=== PATIENT | male | born 1925 | race Hispanic/Latino ===

== ENCOUNTER 2016-06-14 11:19 | Inpatient (IN) | payer MEDICARE ==
[2016-06-14 11:28] VITALS: BMI 26.4
--- NOTE | 2016-06-14 11:46 | ED PDOC ---
Arrival/HPI - General Chief Complaint: Weakness/Neurological Deficit Time Seen by Provider: 06/14/16 11:28 Historian: Patient, Detention - History of Present Illness Narrative History of Present Illness (Text): 06/14/16 11:31 Cheikh Pedroza is an 89 year old male whose past medical history includes Hyperthyroidism, Atrial Fibrillation, CHF, Hypertension, and Meniere's disease, who presents to the ED from [facility] for generalized weakness and mild shortness of breath. Patient also reports a headache that he states is different from the headaches he experiences due to the Meniere's disease. Symptoms are also associated with mild nausea and dizziness. Patient reports a minor slip from his wheelchair but denies LOC or head injury. Patient also denies any speech changes, vision changes, fever, vomiting, abdominal pain, urinary/bowel changes, or other associated symptoms. PMD: Prashanth Madera MD Time/Duration: 24 hours Symptom Onset: Gradual Activities at Onset: Light Context: Home Past Medical History - Provider Review Nursing Documentation Reviewed: Yes - Infectious Disease Hx of Infectious Diseases: None - Tetanus Immunization Tetanus Immunization: Unknown - Cardiac Hx Cardiac Disorders: Yes Hx Cardiac Arrhythmia: Yes (a fib) Hx Congestive Heart Failure: Yes Hx Hypertension: Yes Hx Peripheral Edema: Yes Other/Comment: CARDIOMEGALY 05-31-15 - Pulmonary Hx Respiratory Disorders: Yes Hx Pneumonia: Yes Other/Comment: smoked cigarettes,pipe QUIT - Neurological Hx Neurological Disorder: Yes Hx Dizziness: Yes - HEENT Hx HEENT Disorder: Yes Hx Cataracts: Yes (LENS IMPLANT WITH GLASSES) Hx Deafness: Yes (LEFT EAR-) Hx Glaucoma: Yes Other/Comment: VEstibular neuritis - - Renal Hx Renal Disorder: No - Endocrine/Metabolic Hx Endocrine Disorders: Yes Hx Hyperthyroidism: Yes - Hematological/Oncological Hx Blood Disorders: Yes Hx Anemia: Yes - Integumentary Hx Dermatological Disorder: Yes Hx Eczema: Yes - Musculoskeletal/Rheumatological Hx Musculoskeletal Disorders: Yes Hx Falls: Yes Hx Unsteady Gait: Yes (NON AMBULATORY) - Gastrointestinal Hx Gastrointestinal Disorders: Yes Hx Diverticulitis: Yes Hx Gastroesophageal Reflux: Yes Other/Comment: CONSTIPATION, - Genitourinary/Gynecological Hx Genitourinary Disorders: Yes Hx Incontinence: Yes (SOME) Hx Prostate Problems: Yes (BPH) Hx Urinary Tract Infection: Yes - Psychiatric Hx Psychophysiologic Disorder: Yes (INSOMNIA) Hx Anxiety: Yes Hx Depression: No Hx Emotional Abuse: No Hx Physical Abuse: No Hx Substance Use: No Other/Comment: SMOKED CIGARETTES,PIPE QUIT,ETOH USE QUIT - Past Surgical History Past Surgical History: Unable to Obtain - Surgical History Other/Comment: 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,BILATERAL EYE LENS IMPLANT - Suicidal Assessment Feels Threatened In Home Enviroment: No Family/Social History - Physician Review Nursing Documentation Reviewed: Yes Family/Social History: No Known Family HX Smoking Status: Former Smoker Hx Alcohol Use: No Hx Substance Use: No Hx Substance Use Treatment: No Allergies/Home Meds Allergies/Adverse Reactions: Allergies No Known Allergies Allergy (Verified 06/14/16 11:23) Home Medications: Home Meds Medication Instructions Recorded Confirmed Furosemide [Lasix] 20 mg PO BID 10/14/13 06/14/16 Warfarin [Coumadin] 4 mg PO DAILY 10/14/13 06/14/16 LORazepam [Ativan] 0.5 mg PO Q6 PRN 10/28/13 06/14/16 Lisinopril [Zestril] 2.5 mg PO DAILY 10/28/13 06/14/16 Tamsulosin HCl [Flomax] 0.4 mg PO DAILY 06/20/14 06/14/16 Acetaminophen 650 mg PO Q6H PRN 05/31/15 06/14/16 Ascorbic Acid [Vitamin C] 500 mg PO BID 05/31/15 06/14/16 Multivitamin [One Daily] 1 tab PO DAILY 05/31/15 06/14/16 Atorvastatin [Lipitor] 5 mg PO HS 07/17/15 06/14/16 Carvedilol [Coreg] 3.125 mg PO BID 07/17/15 06/14/16 Digoxin [Lanoxin] 0.125 mg PO MWF 07/17/15 06/14/16 Ferrous Sulfate [Feosol] 325 mg PO DAILY 07/17/15 06/14/16 Polyethylene Glycol 3350 [Miralax] 17 gm PO BID PRN 07/17/15 06/14/16 Aluminum Hydroxide/Magnesium H 30 ml PO Q4 PRN 05/27/16 06/14/16 [Maalox 30 ml] Meclizine [Meclizine*] 12.5 mg PO BID 05/27/16 06/14/16 Verapamil [Calan Tab] 120 mg PO BID 05/27/16 06/14/16 Vit A/Vit C/Vit E/Zinc/Copper 1 tab PO DAILY 06/14/16 06/14/16 [Preservision Areds Softgel] Review of Systems - Physician Review All systems were reviewed & negative as marked: Yes - Review of Systems Constitutional: Other (Generalized Weakness). absent: Fevers Eyes: Normal. absent: Vision Changes ENT: Normal Respiratory: SOB. absent: Cough Cardiovascular: Normal. absent: Chest Pain Gastrointestinal: Nausea. absent: Abdominal Pain, Diarrhea, Vomiting, Appetite Changes Genitourinary Male: Normal. absent: Dysuria, Frequency, Hematuria, Urinary Output Changes Musculoskeletal: Normal. absent: Back Pain, Neck Pain Skin: Normal. absent: Rash Neurological: Headache, Dizziness Endocrine: Normal Hemo/Lymphatic: Normal Psychiatric: Normal Physical Exam Vital Signs Reviewed: Yes Vital Signs Temp Pulse Resp BP Pulse Ox 06/14/16 14:15 63 17 121/75 97 06/14/16 11:41 97.9 F 71 19 110/59 L 97 Temperature: Afebrile Blood Pressure: Hypertensive Pulse: Regular Respiratory Rate: Normal Appearance: Positive for: Well-Appearing, Non-Toxic, Comfortable, Other ( Elderly White Male) Pain Distress: None Mental Status: Positive for: Alert and Oriented X 3 Finger Stick Blood Glucose: 123 - Systems Exam Head: Present: Atraumatic, Normocephalic Pupils: Present: PERRL Extroacular Muscles: Present: EOMI Conjunctiva: Present: Normal Mouth: Present: Moist Mucous Membranes Pharnyx: Present: Normal. No: ERYTHEMA, EXUDATE Neck: Present: Normal Range of Motion Respiratory/Chest: Present: Clear to Auscultation, Good Air Exchange. No: Respiratory Distress, Accessory Muscle Use Cardiovascular: Present: Normal S1, S2, Irregular Rhythm (Irregularly Irregular ). No: Murmurs Abdomen: Present: Normal Bowel Sounds. No: Tenderness, Distention, Peritoneal Signs Back: Present: Normal Inspection Upper Extremity: Present: Normal Inspection. No: Cyanosis, Edema Lower Extremity: Present: Edema (Trace Edema), Other (Very Dry Skin) Neurological: Present: GCS=15, CN II-XII Intact, Speech Normal, Motor Func Grossly Intact, Normal Sensory Function, Normal Cerebellar Funct, Norm Deep Tendon Reflexes, Memory Normal, Normal 2Pt Descrimination Skin: Present: Warm, Dry, Normal Color. No: Rashes Psychiatric: Present: Alert, Oriented x 3, Normal Insight, Normal Concentration Medical Decision Making ED Course and Treatment: 06/14/16 11:31 Impression: 89 year old male sent from [facility] for generalized weakness. Differential Diagnosis include but are not limited to: CHF vs. Atypical ACS vs. Dehydration vs. Head Bleed vs. Electrolytes abnormalities vs. exacerbation of Meniere's disease Plan: -- Brain CT -- Chest X-ray -- VBG -- Labs, cardiac enzymes -- Urinalysis -- Urine Cultures -- Reassess and disposition Prior Visits: Notes and results from previous visits were reviewed. Patient was last seen in the ED on 05/27/16 for genitourinary related symptoms. Progress Notes: 06/14/16 12:00 EKG: Ordered, reviewed, and independently interpreted the EKG. Rate : 66 BPM Rhythm : NSR Interpretation : Normal [place] Deviations, Pseudonormalization of T-waves, No ST Changes Comparison : Compared with previous EKG on 07/17/15 06/14/2016 12:08 Procedure: CT HEAD WITHOUT CONTRAST. Dictator: KELSY RADFORD MD Impression: No acute intracranial abnormality. Moderate chronic microangiopathic changes and moderate age-related global parenchymal volume loss. 06/14/16 12:22 Procedure: CHEST RADIOGRAPH, 1 VIEW Dictator: KELSY RADFORD MD Impression: No active pulmonary disease. Severe cardiomegaly. 06/14/16 13:05 Sodium levels low; 127. 06/14/16 15:54 Patient with noted history - found to have hyponatremia which will need to be corrected; it is the likely cause of the generalized weakness -will admit to Dr. Madera's service; discussed with covering physician, Dr. Nicole. - Lab Interpretations Lab Results: 06/14/16 11:45 06/14/16 11:45 Lab Results 06/14/16 13:50: Ur Random Sodium 124, Ur Random Potassium 17.4 06/14/16 13:40: Urine Color Yellow, Urine Appearance Clear, Urine pH 7.5, Ur Specific [place] 1.010, Urine Protein Negative, Urine Glucose (UA) Negative, Urine Ketones Negative, Urine Blood Negative, Urine Nitrate Negative, Urine Bilirubin Negative, Urine Urobilinogen 1.0 H, Ur Leukocyte Esterase Negative 06/14/16 11:45: WBC 8.7 D, RBC 3.26 L, Hgb 11.1 L, Hct 32.2 L, MCV 98.8, MCH 34.0, MCHC 34.5, RDW 13.6, Plt Count 224, MPV 8.3, Gran % 68.8 H, Lymph % (Auto ) 18.5 L, [place] % (Auto) 9.7 H, Eos % (Auto) 2.4, Baso % (Auto) 0.6, Gran # 5.98 , Lymph # 1.6, [place] # 0.8 H, Eos # 0.2, Baso # 0.05, PT 27.4 H, INR 2.54 H, APTT 32.9 H, pO2 40, VBG pH 7.35, VBG pCO2 56.0, VBG HCO3 30.9 H, VBG Total CO2 32.6 H, VBG O2 Sat (Calc) 75.1 H, VBG Base Excess 3.8 H, VBG Potassium 3.8, Glucose 96, Lactate 1.0, FiO2 21.0, Sodium 129.0 L, Potassium 3.7, Chloride 95.0 L, Carbon Dioxide 28, Anion Gap 12, BUN 13, Creatinine 0.8, Est GFR ( Amer) > 60, Est GFR (Non-Af Amer) > 60, Random Glucose 98, Calcium 8.7, Magnesium 2.0, Total Bilirubin 1.0, Direct Bilirubin 0.5 H, AST 37, ALT 18, Alkaline Phosphatase 35 L, Lactate Dehydrogenase 376, Total Creatine Kinase 63, Troponin I < 0.01, NT-Pro-B Natriuret Pep 2780 H, Total Protein 6.8, Albumin 3.5 , Globulin 3.4, Albumin/Globulin Ratio 1.0 L, Lipase 58, Venous Blood Potassium 3.8, Digoxin 0.9 I have reviewed the lab results: Yes - RAD Interpretation Narrative RAD Interpretations (Text): 06/14/2016 12:08 Procedure: CT HEAD WITHOUT CONTRAST. Dictator: KELSY RADFORD MD FINDINGS: HEMORRHAGE: No intracranial hemorrhage. BRAIN: There are moderate chronic microangiopathic changes. There is no mass, mass effect or abnormal extra-axial fluid collection. There are coarse atherosclerotic calcifications in the cavernous carotid arteries. . There is normal density in the larger dural venous sinuses. VENTRICLES: There is moderate age-related global parenchymal volume loss and proportionate enlargement of the ventricles and cortical sulci. CALVARIUM: The skull base and calvarium are normal. PARANASAL SINUSES: Predominantly clear. MASTOID AIR CELLS: The right mastoid air cells are clear. Status post canal wall down left mastoidectomy. OTHER FINDINGS: None. Impression: No acute intracranial abnormality. Moderate chronic microangiopathic changes and moderate age-related global parenchymal volume loss. 06/14/16 12:22 Procedure: CHEST RADIOGRAPH, 1 VIEW Dictator: KELSY RADFORD MD FINDINGS: LUNGS: The lungs are clear. PLEURA: No pneumothorax or pleural fluid seen. CARDIOVASCULAR: There is severe cardiomegaly. There is unfolding of the aorta. OSSEOUS STRUCTURES: No significant abnormalities. VISUALIZED UPPER ABDOMEN: Normal. OTHER FINDINGS: None. Impression: No active pulmonary disease. Severe cardiomegaly. Radiology Orders: 06/14/16 11:41 Brain [HEAD W/O CONTRAST] [CT] Stat 06/14/16 11:42 CHEST ONE VIEW [RAD] Stat Seasonal Retail Merchandiser: Radiologist - EKG Interpretation Interpreted by ED Physician: Yes Type: 12 lead EKG Comparison: Com.w/previous EKG - Medication Orders Current Medication Orders: Sodium Chloride (Sodium Chloride 0.9%) 1,000 mls @ 75 mls/hr IV .[id number] FLORINDA Last Admin: 06/14/16 15:13 Dose: 75 MLS/HR eMAR Start Stop Document 06/14/16 15:13 SE (Rec: 06/14/16 15:13 SE [id number]) Intravenous Solution Start Date 06/14/16 Start Time 15:13 Discontinued Medications Betamethasone/Clotrimazole (Lotrisone) 1 ml TOP ONCE ONE Stop: 06/14/16 14:45 Last Admin: 06/14/16 15:51 Dose: 1 ML Comments: admin late due to not receiving from pharm. Sodium Chloride (Sodium Chloride 0.9%) 500 mls @ 250 mls/hr IV .Q2H STA Stop: 06/14/16 14:36 Last Admin: 06/14/16 12:44 Dose: 250 MLS/HR eMAR Start Stop Document 06/14/16 12:44 SE (Rec: 06/14/16 12:44 SE [id number]) Intravenous Solution Start Date 06/14/16 Start Time 12:44 Meclizine HCl (Antivert) 12.5 mg PO STAT STA Stop: 06/14/16 12:23 Last Admin: 06/14/16 12:26 Dose: 12.5 MG Ondansetron HCl (Zofran Inj) 4 mg IVP STAT STA Stop: 06/14/16 12:23 Last Admin: 06/14/16 12:26 Dose: 4 MG IVP Administration Document 06/14/16 12:26 SE (Rec: 06/14/16 12:26 SE [id number]) Charges for Administration # of IVP Administrations 1 - Scribe Statement The provider has reviewed the documentation as recorded by the Kael Weathers Provider Attestation: All medical record entries made by the Kael were at my direction and personally dictated by me. I have reviewed the chart and agree that the record accurately reflects my personal performance of the history, physical exam, medical decision making, and the department course for this patient. I have also personally directed, reviewed, and agree with the discharge instructions and disposition. Disposition/Present on Arrival - Present on Arrival Any Indicators Present on Arrival: No History of DVT/PE: No History of Uncontrolled Diabetes: No Urinary Catheter: No History of Decub. Ulcer: No History Surgical Site Infection Following: None - Disposition Have Diagnosis and Disposition been Completed?: Yes Diagnosis: Hyponatremia Disposition: HOSPITALIZED Disposition Time: 14:55 Patient Plan: Admission, Telemetry Patient Problems: Current Active Problems Problem Status Diagnosed Anemia Acute Dizziness Acute Fever Acute Urinary tract infection Acute Weakness Acute Condition: FAIR
[2016-06-14 11:54] LABS: ADD MANUAL DIFF? NO; BASO # 0.05 [, K/mm3] (0.0-2.0); BASO % 0.6 % (0.0-3.0); EOS # 0.2 (0.0-0.7); EOS % 2.4 % (1.5-5.0); GRAN # 5.98 (1.4-6.5); GRAN % 68.8 % (50.0-68.0); HEMATOCRIT 32.2 % (42.0-52.0); LYMPH # 1.6 (1.2-3.4); LYMPH % 18.5 % (22.0-35.0); MEAN CELL VOLUME 98.8 fL (80.0-105.0); MEAN CORPUSCULAR HGB CONC 34.5 g/dl (31.0-37.0); MEAN PLATELET VOLUME 8.3 fl (7.0-11.0); MONO # 0.8 (0.1-0.6); MONO % 9.7 % (1.0-6.0); PLATELET COUNT 224 [, 10^3/uL] (120.0-450.0); RED CELL DISTRIBUTION WIDTH 13.6 % (11.5-14.5); WHITE BLOOD COUNT 8.7 [, 10^3/ul] (4.5-11.0)
[2016-06-14 11:56] LABS: VENOUS BLOOD GAS BASE EXCESS 3.8 mmol/L (0.0-2.0); VENOUS BLOOD PH 7.35 (7.32-7.43)
[2016-06-14 12:05] LABS: INR 2.54 (0.93-1.08); PARTIAL THROMBOPLASTIN TIME 32.9 Seconds (23.7-30.8)
[2016-06-14 12:10] LABS: ALKALINE PHOSPHATASE 35 U/L (38-133); ALT/SGPT 18 U/L (7-56); AST/SGOT 37 U/L (15-59); BILIRUBIN,DIRECT 0.5 mg/dL (0.0-0.4); BLOOD UREA NITROGEN 13 mg/dL (7-21); CALCIUM 8.7 mg/dL (8.4-10.5); CARBON DIOXIDE 28 mmol/L (21-33); CHLORIDE 91 mmol/L (98-107); GFR AFRICAN-AMERICAN > 60; GLUCOSE,RANDOM 98 mg/dL (70-110); LIPASE 58 U/L (23-300); POTASSIUM 3.7 mmol/L (3.6-5.0); SODIUM 127 mmol/L (132-148); TOTAL PROTEIN 6.8 g/dL (5.8-8.3)
--- NOTE | 2016-06-14 12:10 | CT ---
PROCEDURE: CT HEAD WITHOUT CONTRAST. HISTORY: fall, on coumadin COMPARISON: MRI brain without contrast from 07/18/2015 TECHNIQUE: Axial computed tomography images were obtained through the head/brain without intravenous contrast. Radiation dose: Total exam DLP = 791.52 mGy-cm. FINDINGS: HEMORRHAGE: No intracranial hemorrhage. BRAIN: There are moderate chronic microangiopathic changes. There is no mass, mass effect or abnormal extra-axial fluid collection. There are coarse atherosclerotic calcifications in the cavernous carotid arteries. . There is normal density in the larger dural venous sinuses. VENTRICLES: There is moderate age-related global parenchymal volume loss and proportionate enlargement of the ventricles and cortical sulci. CALVARIUM: The skull base and calvarium are normal. PARANASAL SINUSES: Predominantly clear. MASTOID AIR CELLS: The right mastoid air cells are clear. Status post canal wall down left mastoidectomy. OTHER FINDINGS: None. IMPRESSION: No acute intracranial abnormality. Moderate chronic microangiopathic changes and moderate age-related global parenchymal volume loss.
--- NOTE | 2016-06-14 12:23 | RAD ---
PROCEDURE: CHEST RADIOGRAPH, 1 VIEW HISTORY: Shortness of breath COMPARISON: 07/17/2015 FINDINGS: LUNGS: The lungs are clear. PLEURA: No pneumothorax or pleural fluid seen. CARDIOVASCULAR: There is severe cardiomegaly. There is unfolding of the aorta. OSSEOUS STRUCTURES: No significant abnormalities. VISUALIZED UPPER ABDOMEN: Normal. OTHER FINDINGS: None. IMPRESSION: No active pulmonary disease. Severe cardiomegaly.
[2016-06-14] MEDS ORDERED: Sodium Chloride 0.9% 500 ML IV STA (12:37)
[2016-06-14 12:47] LABS: TROPONIN I < 0.01 ng/mL
[2016-06-14 13:54] LABS: PH,URINE 7.5 (4.7-8.0); URINE BILIRUBIN NEGATIVE (NEGATIVE); URINE BLOOD NEGATIVE (NEGATIVE); URINE GLUCOSE (UA) NEGATIVE (NEGATIVE); URINE KETONE NEGATIVE (NEGATIVE); URINE LEUKOCYTE ESTERASE NEGATIVE Leu/uL (NEGATIVE); URINE PROTEIN NEGATIVE mg/dL (<30 mg/dL)
[2016-06-14 13:58] LABS: URINE APPEARANCE CLEAR (CLEAR); URINE COLOR YELLOW (YELLOW)
--- NOTE | 2016-06-14 14:29 | CARD ---
APPROVED REPORT EKG Measurement Heart [id number] <Conclusion> Atrial fibrillation Abnormal ECG
[2016-06-14] MEDS ORDERED: Clotrimazole/Betamethasone Lotion(30 ml) TOP ONE (14:44)
[2016-06-14] MEDS ORDERED: Sodium Chloride 0.9% 1,000 ML IV SCH (15:15)
[2016-06-14] MEDS ORDERED: POLYETHYLENE GLYCOL 3350 17 GM/Dose PACKET PO PRN (17:28)
--- NOTE | 2016-06-14 17:53 | HP ---
HISTORY OF PRESENT ILLNESS: The patient is an 89-year-old, who was sent from [facility] because of generalized weakness. The patient did have mild shortness of breath noted by the nurse on duty. Also complained of some headache, feeling dizzy, lightheaded, and was having some decrease in appetite. The patient also states that he was feeling weak and he almost slipped from the wheelchai r, but did not have any head injury, did not lose consciousness. Did have some slurred speech, becau se of not having dentures. Because of all these multiple complaints, he was sent to Emergency Room f or further evaluation. He does not have nausea or vomiting, but does complain of decreased appetite. PAST MEDICAL HISTORY: Significant for 1. Chronic atrial fibrillation. 2. History of congestive heart failure. 3. Cardiomyopathy. 4. History of benign prostatic hypertrophy. 5. Status post multiple urinary tract infections. 6. Peptic ulcer disease. 7. Generalized osteoarthritis. 8. Chronic anemia. 9. History of glaucoma. 10. Hyperthyroidism. 11. History of Meniere disease. 12. Hypertension. SOCIAL HISTORY: He used to smoke cigars. He was a smoker in the past. Currently he is a resident o f [facility]. ALLERGIES: Not allergic to any medications. MEDICATIONS: In the alf, he is on Lasix 20 mg twice a day, tramadol 50 mg q. 6, digoxin 0.1 25 daily, verapamil 120 mg q. 12, ascorbic acid 500 twice a day, lisinopril 2.5 mg daily, Ativan 1 mg 3 times a day, Coumadin 4 mg daily. REVIEW OF SYSTEMS: Significant for generalized weakness, decreased appetite and feeling dizzy and li ghtheaded. PHYSICAL EXAMINATION: GENERAL: He is awake and alert, able to answer simple questions. VITAL SIGNS: He is afebrile, pulse 71, respirations 19, blood pressure 110/59. LUNGS: Bilateral fair airflow, no rhonchi or crackle. HEART: S1, S2 audible. ABDOMEN: Soft, nontender, no rebound, no guarding. NEUROLOGIC: He is awake and alert, answers simple questions. EXTREMITIES: Bilateral leg, no edema. LABORATORY DATA: WBC is 8.7, hemoglobin 11, hematocrit 32, platelet of 224. PT 27.4, INR 2.54. Shima tete: Sodium 127, potassium 3.7, chloride 91, CO2 28, BUN 13, creatinine 0.8, blood sugar of 98. LFTs are within normal limits. Magnesium is 2.0. BNP is 2780. Troponin is negative. Urinalysis is unremarkable. Digoxin is 0.9. CT scan of the head, no acute finding. X-ray chest, severe cardiomegaly, no pulmonary disease. ECG shows atrial fibrillation. ASSESSMENT: 1. Generalized weakness, probably secondary to hyponatremia. 2. Mruxx-rq-vuanwyh congestive heart failure, systolic dysfunction. 3. Chronic atrial fibrillation. 4. History of hypertension. 5. History of Meniere disease. 6. Chronic anemia. PLAN: The patient will be admitted. We will start him on hypotonic saline. We will resume his usua l medication. Follow up electrolytes in a.m. Physical therapy evaluation has been requested. We wi ll reevaluate the patient in a.m. Angelique Nicole MD cc: [phone] TT: 06/14/2016 17:52:54 ln
[2016-06-14] MEDS: Sodium Chloride 3% 500 ML IV SCH (18:41)
[2016-06-14 20:18] LABS: TROPONIN I < 0.01 ng/mL
[2016-06-14] MEDS ORDERED: Influenza Vaccine 45 MCG/0.5 ml IM ONE (21:30)
[2016-06-14] MEDS ORDERED: Pneumococcal 23-Valent Vaccine IM ONE (21:30)
--- NOTE | 2016-06-14 22:55 | CP.PCM.PN ---
Subjective - Date & Time of Evaluation Date of Evaluation: 06/14/16 Time of Evaluation: 22:54 - Subjective Subjective: HR 38-40 since came to floor. It was in 70's in the ER. Received Coreg 3.125.PO. Verapamil 125 mg PO 93/54, 98.5*F pulse ox 98% on 2L/min. Ordered EKG , troponin, hold coreg, verapamil . Evaluated patient. This 89 year old male was admitted from [facility] for generalized weakness, anorexia, dizziness, sob. Has PMH of HTN,chronic atrial fibrillation, hyperthyroidism, CHF,CMP,BPH,PUD, anemia, OA. Objective - Vital Signs/Intake and Output Vital Signs (last 24 hours): Temp Pulse Resp BP Pulse Ox 97.7 F 63 17 121/75 95 06/14/16 21:08 06/14/16 21:08 06/14/16 21:08 06/14/16 21:08 06/14/16 20:40 - Medications Medications: Current Medications Acetaminophen (Tylenol 325mg Tab) 650 mg PO Q6H PRN PRN Reason: Fever >100.4 F Atorvastatin Calcium (Lipitor) 5 mg PO HS [facility] Last Admin: 06/14/16 22:19 Dose: 5 mg Carvedilol (Coreg) 3.125 mg PO BID FLORINDA Digoxin (Lanoxin) 0.125 mg PO MWF [facility] Sodium Chloride (Hypertonic Saline 3%) 500 mls @ 10 mls/hr IV .Q24H [facility] Last Admin: 06/14/16 18:41 Dose: 10 mls/hr Lisinopril (Zestril) 2.5 mg PO DAILY [facility] Last Admin: 06/14/16 18:47 Dose: 2.5 mg Lorazepam (Ativan) 0.5 mg PO Q6 PRN; Protocol PRN Reason: Anxiety Last Admin: 06/14/16 18:47 Dose: 0.5 mg Meclizine HCl (Antivert) 12.5 mg PO TID [facility] Last Admin: 06/14/16 18:35 Dose: 12.5 mg Polyethylene Glycol (Miralax) 17 gm PO BID PRN PRN Reason: Constipation Tamsulosin HCl (Flomax) 0.4 mg PO HS [facility] Verapamil HCl (Calan Tab) 120 mg PO BID [facility] Warfarin Sodium (Coumadin) 4 mg PO 1800 [facility] PRN Reason: Protocol - Labs Labs: PT 27.4 Seconds (9.9-11.8) H 06/14/16 11:45 INR 2.54 (0.93-1.08) H 06/14/16 11:45 APTT 32.9 Seconds (23.7-30.8) H 06/14/16 11:45 - Constitutional Appears: Well, No Acute Distress - Head Exam Head Exam: NORMAL INSPECTION, NORMOCEPHALIC - Eye Exam Eye Exam: Normal appearance - ENT Exam ENT Exam: Mucous Membranes Dry - Neck Exam Neck Exam: Normal Inspection - Respiratory Exam Respiratory Exam: NORMAL BREATHING PATTERN - Cardiovascular Exam Cardiovascular Exam: Bradycardia, Irregular Rhythm. absent: JVD - GI/Abdominal Exam GI & Abdominal Exam: absent: Distended - Extremities Exam Extremities Exam: Normal Inspection - Back Exam Back Exam: NORMAL INSPECTION - Neurological Exam Neurological Exam: Altered (mental status) - Psychiatric Exam Psychiatric exam: Normal Affect, Normal Mood - Skin Skin Exam: Normal Color Assessment and Plan - Assessment and Plan (Free Text) Assessment: A/P:Atrial fibrillation with low rate. Hypotension.2* to meds coreg, verapamil? Chronic atrial fibrillation. BPH. Hx CHF. HTN. Anemia. Hyperthyroidism. Hold coreg, verapamil EKG troponin. 12:03 Patient comfortable.Has no chest pain, nausea, sweating, palpitation, sob. Monitor shows rate ranging from 40- 45. Checked with monitor car operator. Has bradyarrhythmia(AFib) since 8:30 PM. Had some pauses, 2secons and PVC's. EKG shows new inversion of T waves in V2,V3, atrial fibrillation. Will get BMP, mag,phos levels also. Will observe.
[2016-06-15 00:16] LABS: BLOOD UREA NITROGEN 13 mg/dL (7-21); CALCIUM 8.4 mg/dL (8.4-10.5); CARBON DIOXIDE 29 mmol/L (21-33); CHLORIDE 90 mmol/L (98-107); GFR AFRICAN-AMERICAN > 60; GLUCOSE,RANDOM 93 mg/dL (70-110); PHOSPHOROUS 3.3 mg/dL (2.5-4.5); POTASSIUM 3.8 mmol/L (3.6-5.0); SODIUM 126 mmol/L (132-148)
[2016-06-15 06:52] LABS: ADD MANUAL DIFF? NO
[2016-06-15 07:10] LABS: BASO # 0.03 [, K/mm3] (0.0-2.0); BASO % 0.4 % (0.0-3.0); EOS # 0.2 (0.0-0.7); EOS % 2.6 % (1.5-5.0); GRAN # 4.53 (1.4-6.5); GRAN % 63.2 % (50.0-68.0); HEMATOCRIT 34.1 % (42.0-52.0); LYMPH # 1.7 (1.2-3.4); MEAN CELL VOLUME 99.1 fL (80.0-105.0); MEAN CORPUSCULAR HEMOGLOBIN 33.4 pg (25.0-35.0); MEAN CORPUSCULAR HGB CONC 33.7 g/dl (31.0-37.0); MEAN PLATELET VOLUME 8.6 fl (7.0-11.0); MONO # 0.7 (0.1-0.6); MONO % 9.8 % (1.0-6.0); PLATELET COUNT 231 [, 10^3/uL] (120.0-450.0); RED CELL DISTRIBUTION WIDTH 13.8 % (11.5-14.5); WHITE BLOOD COUNT 7.2 [, 10^3/ul] (4.5-11.0)
[2016-06-15 07:11] LABS: ALKALINE PHOSPHATASE 37 U/L (38-133); ALT/SGPT 22 U/L (7-56); AST/SGOT 39 U/L (15-59); BILIRUBIN,TOTAL 1.2 mg/dL (0.2-1.3); BLOOD UREA NITROGEN 12 mg/dL (7-21); CALCIUM 8.8 mg/dL (8.4-10.5); CARBON DIOXIDE 30 mmol/L (21-33); CHLORIDE 91 mmol/L (98-107); GFR AFRICAN-AMERICAN > 60; GLUCOSE,RANDOM 89 mg/dL (70-110); POTASSIUM 4.7 mmol/L (3.6-5.0); SODIUM 128 mmol/L (132-148)
[2016-06-15 07:33] LABS: TROPONIN I < 0.01 ng/mL
--- NOTE | 2016-06-15 14:48 | PN ---
DATE: 06/15/2016 The patient is an 89-year-old, seen and examined, lying in bed. Complained of discomfort on urinatio n. However, urinalysis is unremarkable. He complained of feeling dizzy, weak in the detention. He was brought to Emergency Room, was found to be hyponatremic. When I mentioned to him, he said lyssa t is the least of his problems. He complained of some urinary discomfort. No history of fever or ch ills. No history of nausea or vomiting. PHYSICAL EXAMINATION: VITAL SIGNS: He is afebrile, pulse 76, respirations 19, blood pressure 130/85. LUNGS: Bilateral fair airflow, no rhonchi or crackle. HEART: S1, S2 audible. ABDOMEN: Soft, obese, nontender, no rebound, no guarding. NEUROLOGIC: He is awake and alert, answers appropriately. EXTREMITIES: Bilateral legs, no edema. LABORATORY EXAMINATION: WBC 7.2, hemoglobin 11.5, hematocrit 34, platelets of 231. PT is 27.4, INR 2.54. Chemistry: Sodium 128, potassium 4.7, chloride 91, CO2 30, BUN 12, creatinine 0.7, blood suga r of 89. Urinalysis is unremarkable. Toxicology shows dig level of 0.9. ASSESSMENT: 1. Generalized weakness, probably secondary to electrolyte imbalance. 2. Chronic Meniere disease. 3. Congestive heart failure. 4. Chronic atrial fibrillation, on anticoagulation. 5. Hypertension. 6. Chronic anemia. 7. Deconditioning and difficulty walking. PLAN: Currently, patient is on Antivert. We will keep him on Coumadin 4 mg daily. I will order for CBC, CMP, and PT/INR in a.m. Out of bed to chair with assistance. Dr. Madera will reevaluate pat ient in a.m. Angelique Nicole MD cc: [phone] TT: 06/15/2016 14:48:26 Confirmation # [id number] Dictation # [id number]
--- NOTE | 2016-06-15 18:24 | CARD ---
APPROVED REPORT EKG Measurement Heart [id number] <Conclusion> Atrial fibrillation Low voltage QRS Abnormal ECG
--- NOTE | 2016-06-15 18:29 | CARD ---
APPROVED REPORT EKG Measurement Heart [id number] <Conclusion> Atrial fibrillation with slow ventricular response with premature ventricular or aberrantly conducted complexes ST & T wave abnormality, consider anterior ischemia or digitalis effect Abnormal ECG
[2016-06-15] MEDS: Sodium Chloride 3% 500 ML IV SCH (22:48)
[2016-06-16 05:33] VITALS: O2SAT 98
[2016-06-16 07:14] LABS: INR 2.19 (0.93-1.08)
[2016-06-16 07:26] LABS: ALB/GLOB RATIO 0.9 (1.1-1.8); ALKALINE PHOSPHATASE 32 U/L (38-133); ALT/SGPT 16 U/L (7-56); AST/SGOT 35 U/L (15-59); BLOOD UREA NITROGEN 14 mg/dL (7-21); CALCIUM 7.9 mg/dL (8.4-10.5); CARBON DIOXIDE 31 mmol/L (21-33); CHLORIDE 102 mmol/L (98-107); GFR AFRICAN-AMERICAN > 60; GLUCOSE,RANDOM 88 mg/dL (70-110); POTASSIUM 4.1 mmol/L (3.6-5.0); SODIUM 138 mmol/L (132-148); TOTAL PROTEIN 5.9 g/dL (5.8-8.3)
--- NOTE | 2016-06-16 08:44 | CON ---
DATE: 06/15/2016 CARDIOLOGY CONSULTATION Cardiology consultation (for Dr. Bajwa). HISTORY OF PRESENT ILLNESS: The patient is an 89-year-old male from a intermediate who presents with weakness. PAST MEDICAL HISTORY: The patient's past medical history has been documented with chronic atrial fib rillation with periods of marked bradycardia in previous admissions, which have resolved off AV bette -blocking medications. 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 No shortness of breath, no chest pain noted. The patient just complains of weakness. SOCIAL HISTORY: The patient is from a intermediate. REVIEW OF SYSTEMS: A 14-point review of systems was reviewed. His main complaints are noncardiac wi th lack of sleep with poor dietary food quality, as well as being bothered all night for tests, as we ll as examinations. PHYSICAL EXAMINATION: VITAL SIGNS: Blood pressure is 102/54. The heart rate in the 40s, atrial fibrillation. NECK: Negative JVD. LUNGS: Without rales. HEART: Reveals a I/ systolic murmur. EXTREMITIES: Without edema. EKG shows atrial fibrillation with marked decreased ventricular rate. LABORATORIES: The INR is 2.54. Chemistries: The sodium is 128 with troponins that are negative. T he hemoglobin is 11.5. IMPRESSION: 1. Chronic atrial fibrillation being anticoagulated appropriately. However, he has had repeated epi sodes of bradycardia on atrioventricular-blocking bette medications. 2. Anemia. 3. Dilated cardiomyopathy. 4. History of Meniere's disease. 5. Remote history of congestive heart failure. Given these findings, we will discontinue his verapamil; we will discontinue his beta-blockers. As a suggestion, I would avoid atrioventricular bette-blocking medications especially in combination in this gentleman who has documented slow heart rates in the past. We will hold these medications, observe for 24 hours. No further cardiac workup is indicated at this time. We will send the case back to Dr. Bajwa in the morning. Edson Perry MD cc: [id number] TT: 06/15/2016 08:44:16 Confirmation # [id number] Dictation # [id number] jn
[2016-06-16 09:23] VITALS: PULSE 45
[2016-06-16] MEDS ORDERED: Digoxin 125 mcg (0.125 mg) Tab PO SCH (10:00)
--- NOTE | 2016-06-16 10:58 | DS ---
SUBJECTIVE: This is an 89-year-old male who came into the hospital complaining of dizziness. The jadiel gomez had an evaluation done. A CT of the head showed no acute intracranial abnormalities. He has b een having this dizziness for quite some time. He was found to be hyponatremic. He was treated and his sodium is improved. This morning, his sodium is 138. The patient is currently comfortable. He is going to be seen by Dr. Michael and if there is no other intervention, the patient will be dischar ge. PHYSICAL EXAMINATION: VITAL SIGNS: Temperature is 97.9, pulse of 57, blood pressure is 129/66, respirations 20, O2 saturat ion 98%. GENERAL: The patient comfortable, in no acute distress. HEENT: Anicteric sclerae. Moist mucosa. NECK: No JVD or adenopathy. CARDIAC: S1/S2. No murmurs. No rubs. Regular. RESPIRATORY: Clear to auscultation bilaterally. No wheezes, rales, or rhonchi. Good air entry. ABDOMEN: Bowel sounds are positive, soft, nontender, and nondistended. EXTREMITIES: No edema. Has 1+ pulses. ASSESSMENT: 1. Dizziness, secondary to Meniere's 2. Atrial fibrillation, on Coumadin. 3. Hypertension. 4. Chronic anemia. 5. Gait dysfunction. 6. Dyslipidemia. PLAN: The patient is currently comfortable. We will stop the patient's hypertonic saline. The jon york is on digoxin. He is going to be on Coumadin, is on meclizine. He is going to continue with lis inopril. He is on a heart healthy diet. He had balanitis that is being treated locally. The yen zurita is going to be discharged back to the [facility] where he is a long-term care resident. CONDITION: Stable. ACTIVITY: Increase as tolerated. Prashanth Madera MD cc: [id number] TT: 06/16/2016 10:57:28 en
[2016-06-16 12:07] VITALS: BP 97/64; RESP 21; TEMP 97.5
--- NOTE | 2016-06-16 13:14 | PN ---
DATE: 06/16/2016 REASON FOR EVALUATION: Cardiac evaluation, history of chronic atrial fibrillation, admitted with gen eralized weakness. BRIEF CLINICAL HISTORY: This is an 89-year-old male, documented history of chronic atrial fibrillati on, hypertension, hyperlipidemia. Cardiology being followed at [facility] in the [place]. The patient has worked up for implantation of pacemaker. The patient last time refused pacemak er and was told by cardiology that he does not need a pacemaker. As per patient, who admitted with g eneralized weakness one point, patient has 3 second pause. The heart rate improved after holdi ng the AV bette blocking agent. The patient at home was digoxin as well as verapamil. Since is held , patient had a 2 second pause, but not 3 seconds and admitting heart rate improved. The patient den ies any chest pain, shortness of breath, any palpitation. PAST MEDICAL HISTORY: Significant for hypertension, hyperlipidemia, chronic atrial fibrillation and was told in the past that the patient needs a pacemaker. The patient refused. Later on, the cardiol ogy group said the patient does not need the pacemaker. PREVIOUS CARDIAC WORKUP: The patient had echocardiography 10/15/2013 that shows normal LV size, eject ion fraction 25%, mild to moderate aortic regurgitation, moderate to severe mitral regurgitation, mod erate to severe tricuspid regurgitation, RV systolic pressure 44. Then patient had repeat echocardio graphy on 06/21/2014 that shows ejection fraction 45%, mildly impaired, mild to moderate aortic regurg itation, mild mitral regurgitation, trace tricuspid regurgitation, RV systolic pressure 26. Last adm ission, patient's heart rate was slow. Holter was placed and maximum pause was 2.4 seconds. After t his admission, patient was discharged to [facility]. Decision was made not to put the pa cemaker. PHYSICAL EXAMINATION: VITAL SIGNS: Temperature afebrile, heart rate 45, blood pressure 97/54. HEENT: PERRLA. Extraocular muscles intact. NECK: Supple. No carotid bruits. No thyromegaly. CHEST: Clear to auscultation. HEART: S1, S2 regular. ABDOMEN: Soft. EXTREMITIES: Clubbing, cyanosis negative. BLOOD WORKUP: WBC 7.4, hemoglobin 11.5, hematocrit 34.1, platelet count 231. Chemistry shows sodium 130, potassium 4.1, chloride 102, carbon dioxide 31, anion gap of 9, BUN 14, creatinine 0.7. Tropon in 0.01. No evidence of acute VT noted. EKG showed atrial fibrillation, heart rate 65. IMPRESSION: Chronic atrial fibrillation, slow ventricular rate. On admission, patient had a long pa use because patient was on verapamil as well as digoxin, which after the verapamil was discontinued, heart rate significantly improved. No evidence of acute myocardial infarction. No evidence of coron ronny ischemia. Troponin remains flat. Last echo 06/21/2014, ejection fraction 45%, mild to moderate a ortic regurgitation, mild to moderate mitral regurgitation, trace tricuspid regurgitation, right vent ricular systolic pressure 26. INR therapeutic 2.19. RECOMMENDATION: Continue digoxin Thursday, Thursday, Thursday. Discontinue verapamil because it slows the heart rate with bette blocking agent. Continue current treatment. Possible discharge plan gisele. Thank you, Dr. Madera, for providing us the opportunity in taking care of the patient. We will mon itor while the patient is here on the telemetry. Repeat the blood workup in the morning. We will al so get lipid profile and PT/INR in the morning. Thank you, Dr. Madera, for providing us the opportunity in taking care of the patient. Celestina Bajwa MD cc:Prashanth Madera MD [id number] TT: 06/16/2016 13:13:22 Confirmation # [id number] Dictation # [id number] en
== END 2016-06-16 14:17 | DRG 641 ==
LOC: ED 11:19 → ERH 15:09 → 2RSO 17:48
PROVIDERS: ADMIT Internal Medicine Nephrology; ATTEND Internal Medicine Nephrology
DX: E87.1 Hypo-osmolality and hyponatremia (principal); I11.0 Hypertensive heart disease with heart failure; I42.0 Dilated cardiomyopathy; I50.22 Chronic systolic (congestive) heart failure; H81.09 Meniere's disease, unspecified ear; I48.2 Chronic atrial fibrillation; R00.1 Bradycardia, unspecified; D64.9 Anemia, unspecified; N40.0 Benign prostatic hyperplasia without lower urinary tract symptoms; E05.90 Thyrotoxicosis, unspecified without thyrotoxic crisis or storm; E78.5 Hyperlipidemia, unspecified; I25.5 Ischemic cardiomyopathy; R63.0 Anorexia; R26.2 Difficulty in walking, not elsewhere classified; I08.3 Combined rheumatic disorders of mitral, aortic and tricuspid valves; M15.9 Polyosteoarthritis, unspecified; Z79.01 Long term (current) use of anticoagulants; Z87.440 Personal history of urinary (tract) infections; Z87.11 Personal history of peptic ulcer disease; Z87.891 Personal history of nicotine dependence

== ENCOUNTER 2016-07-22 12:59 | Emergency (ER) | payer MEDICARE ==
[2016-07-22 13:00] VITALS: PULSE 45; BMI 26.4
--- NOTE | 2016-07-22 13:21 | ED PDOC ---
Arrival/HPI - General Chief Complaint: Weakness/Neurological Deficit Time Seen by Provider: 07/22/16 13:04 Historian: Patient, Usp - History of Present Illness Narrative History of Present Illness (Text): 07/22/16 13:18 A 89 year old male, whose past medical history includes hypertension, A-fib, CHF , GERD, multiple UTIs, anxiety and vertigo, was sent to the emergency department by [facility] for generalized weakness and frequent urination. On evaluation patient is alert to person and place only. Patient denies any fever, chills, nausea, vomiting, diarrhea, abdominal pain, chest pain ,shortness of breath or any other complaints. Patient is a poor historian. PMD: Dr. Madera Time/Duration: Prior to Arrival Symptom Course: Unchanged Quality: Other Context: Home (care home) Past Medical History - Provider Review Nursing Documentation Reviewed: Yes - Infectious Disease Hx of Infectious Diseases: None - Tetanus Immunization Tetanus Immunization: Unknown - Cardiac Hx Cardiac Disorders: Yes Hx Atrial Fibrillation: Yes Hx Cardiac Arrhythmia: Yes (a fib) Hx Congestive Heart Failure: Yes Hx Hypertension: Yes Hx Peripheral Edema: Yes Other/Comment: CARDIOMEGALY 05-31-15 - Pulmonary Hx Respiratory Disorders: Yes Hx Pneumonia: Yes Other/Comment: smoked cigarettes,pipe QUIT - Neurological Hx Neurological Disorder: Yes (NEAR SYNCOPE,MENIERE'S DSE,VERTIGO) Hx Dizziness: Yes Hx Vertigo: Yes - HEENT Hx HEENT Disorder: Yes Hx Cataracts: Yes (LENS IMPLANT WITH GLASSES) Hx Deafness: Yes (LEFT EAR-) Hx Glaucoma: Yes Other/Comment: VEstibular neuritis - - Renal Hx Renal Disorder: No - Endocrine/Metabolic Hx Endocrine Disorders: Yes Hx Hyperthyroidism: Yes - Hematological/Oncological Hx Blood Disorders: Yes Hx Anemia: Yes - Integumentary Hx Dermatological Disorder: Yes Hx Eczema: Yes - Musculoskeletal/Rheumatological Hx Musculoskeletal Disorders: Yes Hx Falls: Yes Hx Unsteady Gait: Yes (NON AMBULATORY) - Gastrointestinal Hx Gastrointestinal Disorders: Yes Hx Diverticulitis: Yes Hx Gastroesophageal Reflux: Yes Other/Comment: CONSTIPATION, - Genitourinary/Gynecological Hx Genitourinary Disorders: Yes Hx Incontinence: Yes (SOME) Hx Prostate Problems: Yes (BPH) Hx Urinary Tract Infection: Yes - Psychiatric Hx Psychophysiologic Disorder: Yes (INSOMNIA) Hx Anxiety: Yes Hx Depression: No Hx Emotional Abuse: No Hx Physical Abuse: No Hx Substance Use: No Other/Comment: SMOKED CIGARETTES,PIPE QUIT,ETOH USE QUIT - Past Surgical History Past Surgical History: Unable to Obtain - Surgical History Other/Comment: 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,BILATERAL EYE LENS IMPLANT - Suicidal Assessment Feels Threatened In Home Enviroment: No Family/Social History - Physician Review Nursing Documentation Reviewed: Yes Family/Social History: No Known Family HX Smoking Status: Former Smoker Hx Alcohol Use: No Hx Substance Use: No Hx Substance Use Treatment: No Allergies/Home Meds Allergies/Adverse Reactions: Allergies No Known Allergies Allergy (Verified 07/22/16 13:26) Home Medications: Home Meds Medication Instructions Recorded Confirmed Furosemide [Lasix] 20 mg PO BID 10/14/13 06/14/16 Warfarin [Coumadin] 4 mg PO DAILY 10/14/13 06/14/16 LORazepam [Ativan] 0.5 mg PO Q6 PRN 10/28/13 06/14/16 Lisinopril [Zestril] 2.5 mg PO DAILY 10/28/13 06/14/16 Tamsulosin HCl [Flomax] 0.4 mg PO DAILY 06/20/14 06/14/16 Ascorbic Acid [Vitamin C] 500 mg PO BID 05/31/15 06/14/16 Multivitamin [One Daily] 1 tab PO DAILY 05/31/15 06/14/16 Atorvastatin [Lipitor] 5 mg PO HS 07/17/15 06/14/16 Carvedilol [Coreg] 3.125 mg PO BID 07/17/15 06/14/16 Digoxin [Lanoxin] 0.125 mg PO MWF 07/17/15 06/14/16 Ferrous Sulfate [Feosol] 325 mg PO DAILY 07/17/15 06/14/16 Polyethylene Glycol 3350 [Miralax] 17 gm PO BID PRN 07/17/15 06/14/16 Aluminum Hydroxide/Magnesium H 30 ml PO Q4 PRN 05/27/16 06/14/16 [Maalox 30 ml] Meclizine [Meclizine*] 12.5 mg PO BID 05/27/16 06/14/16 Verapamil [Calan Tab] 120 mg PO BID 05/27/16 06/14/16 Acetaminophen [Tylenol 325mg tab] 325 mg PO Q6 PRN 06/14/16 06/14/16 Vit A/Vit C/Vit E/Zinc/Copper 1 tab PO DAILY 06/14/16 06/14/16 [Preservision Areds Softgel] Review of Systems - Physician Review All systems were reviewed & negative as marked: Yes - Review of Systems Constitutional: Other (Generalized weakness). absent: Fevers, Night Sweats Eyes: absent: Vision Changes Respiratory: absent: SOB Cardiovascular: absent: Chest Pain Gastrointestinal: absent: Abdominal Pain, Diarrhea, Nausea, Vomiting Genitourinary Male: Frequency Neurological: absent: Dizziness, Focal Weakness Physical Exam Vital Signs Reviewed: Yes Vital Signs Temp Pulse Resp BP Pulse Ox 07/22/16 13:28 99.1 F 07/22/16 13:12 98 F 68 16 131/72 96 Temperature: Afebrile Blood Pressure: Normal Pulse: Regular Respiratory Rate: Normal Appearance: Positive for: Well-Appearing, Non-Toxic, Comfortable Pain Distress: None Mental Status: Positive for: other (Alert to person and place only but not to time). No: Agitated - Systems Exam Head: Present: Atraumatic, Normocephalic Pupils: Present: PERRL Extroacular Muscles: Present: EOMI Conjunctiva: Present: Normal Mouth: Present: Moist Mucous Membranes Pharnyx: Present: Normal. No: ERYTHEMA, EXUDATE Respiratory/Chest: Present: Good Air Exchange, Decreased Breath Sounds (to bilateral bases). No: Respiratory Distress, Accessory Muscle Use Cardiovascular: Present: Normal S1, S2, Irregular Rhythm, Other (Regular Rate). No: Murmurs Abdomen: Present: Normal Bowel Sounds. No: Tenderness, Distention, Peritoneal Signs Upper Extremity: Present: Normal Inspection. No: Cyanosis, Edema Lower Extremity: Present: Normal Inspection, NORMAL PULSES, Neurovascularly Intact. No: Edema, CALF TENDERNESS, Tenderness, Swelling, Erythema, Deformity, Temperature Abnormalties Neurological: Present: GCS=15, CN II-XII Intact, Speech Normal Skin: Present: Warm, Dry, Normal Color. No: Rashes Psychiatric: Present: Alert, Other (Oriented to person and place, not time). No : Oriented x 3 Medical Decision Making ED Course and Treatment: 07/22/16 13:18 Impression: A 89 year old male sent in for generalized weakness and frequent urination. Patient is alert and oriented to person and time only, which is apparently is baseline. Plan: -- Head CT -- Chest xray -- EKG -- Labs -- Blood and Urine culture -- Urinalysis -- Reassess and disposition Prior Visits: Notes and results from previous visits were reviewed. Patient last seen in the ED on 06/14/16 for generalized weakness. Patient was hospitalized for hyponatremia. Progress Notes: EKG shows a-fib at 71 BPM with normal axis, no ST changes from prior on . Interpreted by me. Report Date : 07/22/2016 14:16:11 PROCEDURE: CT HEAD WITHOUT CONTRAST. Dictator : Mahnaz Schreiber MD IMPRESSION: No acute intracranial abnormality. Moderate chronic microangiopathic changes and moderate age-related global parenchymal volume loss. Report Date : 07/22/2016 14:20:39 PROCEDURE: CHEST RADIOGRAPH, 1 VIEW Dictator : Mahnaz Schreiber MD IMPRESSION: No active pulmonary disease. Persistent moderate cardiomegaly. 07/22/16 14:54 Patient with unremarkable vitals here in the ED. Blood work with minimal hyponatremia but otherwise unremarkable, and urine shows UTI. Will give rocephin. Patient with no alteration in mental status, as discussed with Dr. Madera, who says patient is at his baseline. CT brain was originally ordered for that, but it is negative. No indication for admission as patient may be continued on rocephin at the [place], and Dr. Madera will follow culture results. - Lab Interpretations Lab Results: 07/22/16 13:00 07/22/16 13:00 Lab Results 07/22/16 14:24: Urine Color Yellow, Urine Appearance Turbid, Urine pH 7.5, Ur Specific Otter 1.015, Urine Protein 30 H, Urine Glucose (UA) Negative, Urine Ketones Negative, Urine Blood Trace-lysed H, Urine Nitrate Positive H, Urine Bilirubin Negative, Urine Urobilinogen 4.0 H, Ur Leukocyte Esterase Large H, Urine RBC 0 - 2, Urine WBC Tntc, Urine Bacteria Many 07/22/16 13:45: pO2 63 H, VBG pH 7.36, VBG pCO2 58.0, VBG HCO3 32.8 H, VBG Total CO2 34.6 H, VBG O2 Sat (Calc) 94.8 H, VBG Base Excess 5.6 H, VBG Potassium 3.8, Glucose 103, Lactate 0.7, FiO2 21.0, Sodium 131.0 L, Chloride 99.0, Venous Blood Potassium 3.8 07/22/16 13:00: Digoxin 0.7 L 07/22/16 13:00: Sodium 130 L, Potassium 3.8, Chloride 92 L, Carbon Dioxide 31, Anion Gap 11, BUN 17, Creatinine 0.8, Est GFR ( Amer) > 60, Est GFR (Non- Af Amer) > 60, Random Glucose 97, Calcium 8.9, Phosphorus 3.3, Magnesium 2.1, Total Bilirubin 1.4 H, AST 40, ALT 32, Alkaline Phosphatase 37 L, Lactate Dehydrogenase 437, Total Creatine Kinase 54, Troponin I < 0.01, NT-Pro-B Natriuret Pep 4720 H, Total Protein 7.4, Albumin 3.8, Globulin 3.6, Albumin/ Globulin Ratio 1.1, Lipase 58 07/22/16 13:00: PT 25.3 H, INR 2.34 H, APTT 32.1 H 07/22/16 13:00: WBC 7.8, RBC 3.19 L, Hgb 10.9 L, Hct 31.5 L, MCV 98.7, MCH 34.2 , MCHC 34.6, RDW 13.7, Plt Count 286, MPV 8.1, Gran % 68.7 H, Lymph % (Auto) 18.7 L, [place] % (Auto) 9.6 H, Eos % (Auto) 2.6, Baso % (Auto) 0.4, Gran # 5.38, Lymph # 1.5, [place] # 0.8 H, Eos # 0.2, Baso # 0.03 I have reviewed the lab results: Yes - RAD Interpretation Radiology Orders: 07/22/16 13:23 CHEST ONE VIEW [RAD] Stat 07/22/16 13:25 Brain [HEAD W/O CONTRAST] [CT] Stat - Medication Orders Current Medication Orders: Ceftriaxone Sodium (Rocephin 1 Gram Ivpb) 1 gm in 100 mls @ 200 mls/hr IV ONCE STA PRN Reason: Protocol Stop: 07/22/16 15:07 Last Admin: 07/22/16 14:46 Dose: 200 mls/hr - Scribe Statement Bell Alexis Provider Scribe Attestation: All medical record entries made by the Scribe were at my direction and personally dictated by me. I have reviewed the chart and agree that the record accurately reflects my personal performance of the history, physical exam, medical decision making, and the department course for this patient. I have also personally directed, reviewed, and agree with the discharge instructions and disposition. Disposition/Present on Arrival - Present on Arrival Any Indicators Present on Arrival: No History of DVT/PE: No History of Uncontrolled Diabetes: No Urinary Catheter: No History of Decub. Ulcer: No History Surgical Site Infection Following: None - Disposition Have Diagnosis and Disposition been Completed?: Yes Diagnosis: Urinary tract infection Disposition: TRANSF TO SNF Disposition Time: 14:55 Patient Plan: Transfer To (intermediate) Condition: GOOD Additional Instructions: Continue rocephin for UTI. Follow up with Dr. Madera. Return to the emergency department if any new concerning symptoms. Referrals: Prashanth Madera MD [Primary Care Provider] - Follow up with primary
[2016-07-22 13:28] VITALS: TEMP 99.1
[2016-07-22 13:34] LABS: ADD MANUAL DIFF? NO
[2016-07-22 13:48] LABS: ALB/GLOB RATIO 1.1 (1.1-1.8); ALKALINE PHOSPHATASE 37 U/L (38-133); ALT/SGPT 32 U/L (7-56); AST/SGOT 40 U/L (15-59); BILIRUBIN,TOTAL 1.4 mg/dL (0.2-1.3); BLOOD UREA NITROGEN 17 mg/dL (7-21); CALCIUM 8.9 mg/dL (8.4-10.5); CARBON DIOXIDE 31 mmol/L (21-33); CHLORIDE 92 mmol/L (98-107); GFR AFRICAN-AMERICAN > 60; GLUCOSE,RANDOM 97 mg/dL (70-110); LIPASE 58 U/L (23-300); MAGNESIUM 2.1 mg/dL (1.7-2.2); PHOSPHOROUS 3.3 mg/dL (2.5-4.5); POTASSIUM 3.8 mmol/L (3.6-5.0); SODIUM 130 mmol/L (132-148); TOTAL PROTEIN 7.4 g/dL (5.8-8.3)
[2016-07-22 13:51] LABS: BASO # 0.03 K/mm3 (0.0-2.0); BASO % 0.4 % (0.0-3.0); EOS # 0.2 (0.0-0.7); EOS % 2.6 % (1.5-5.0); GRAN # 5.38 (1.4-6.5); GRAN % 68.7 % (50.0-68.0); HEMATOCRIT 31.5 % (42.0-52.0); LYMPH # 1.5 (1.2-3.4); LYMPH % 18.7 % (22.0-35.0); MEAN CELL VOLUME 98.7 fL (80.0-105.0); MEAN CORPUSCULAR HEMOGLOBIN 34.2 pg (25.0-35.0); MEAN CORPUSCULAR HGB CONC 34.6 g/dl (31.0-37.0); MEAN PLATELET VOLUME 8.1 fl (7.0-11.0); MONO # 0.8 (0.1-0.6); MONO % 9.6 % (1.0-6.0); PLATELET COUNT 286 10^3/uL (120.0-450.0); RED CELL DISTRIBUTION WIDTH 13.7 % (11.5-14.5); WHITE BLOOD COUNT 7.8 10^3/ul (4.5-11.0)
[2016-07-22 13:51] LABS: VENOUS BLOOD GAS BASE EXCESS 5.6 mmol/L (0.0-2.0); VENOUS BLOOD PH 7.36 (7.32-7.43)
[2016-07-22 13:57] LABS: INR 2.34 (0.93-1.08); PARTIAL THROMBOPLASTIN TIME 32.1 Seconds (23.7-30.8)
[2016-07-22 14:00] LABS: TROPONIN I < 0.01 ng/mL
--- NOTE | 2016-07-22 14:17 | CT ---
PROCEDURE: CT HEAD WITHOUT CONTRAST. HISTORY: Altered mental status COMPARISON: 06/14/2016 TECHNIQUE: Axial computed tomography images were obtained through the head/brain without intravenous contrast. Radiation dose: Total exam DLP = 824.94 mGy-cm. This CT exam was performed using one or more of the following dose reduction techniques: Automated exposure control, adjustment of the mA and/or kV according to patient size, and/or use of iterative reconstruction technique. FINDINGS: HEMORRHAGE: No intracranial hemorrhage. BRAIN: There are moderate chronic microangiopathic changes. There is no mass, mass effect or abnormal extra-axial fluid collection. There are coarse atherosclerotic calcifications in the cavernous carotid arteries. VENTRICLES: There is moderate age-related global parenchymal volume loss and proportionate enlargement of the ventricles and cortical sulci. CALVARIUM: The skull base and calvarium are normal. PARANASAL SINUSES: Predominantly clear. MASTOID AIR CELLS: The right mastoid air cells are clear. Status post canal wall down left mastoidectomy. OTHER FINDINGS: None. IMPRESSION: No acute intracranial abnormality. Moderate chronic microangiopathic changes and moderate age-related global parenchymal volume loss.
--- NOTE | 2016-07-22 14:22 | RAD ---
PROCEDURE: CHEST RADIOGRAPH, 1 VIEW HISTORY: generalized weakness COMPARISON: 06/14/2016. FINDINGS: LUNGS: There is patient rotation to the right. The lungs are clear. Clear. PLEURA: No pneumothorax or pleural fluid seen. CARDIOVASCULAR: There is persistent moderate cardiomegaly. There is unfolding of the aorta. OSSEOUS STRUCTURES: No significant abnormalities. VISUALIZED UPPER ABDOMEN: Normal. OTHER FINDINGS: None. IMPRESSION: No active pulmonary disease. Persistent moderate cardiomegaly.
[2016-07-22 14:31] LABS: PH,URINE 7.5 (4.7-8.0); URINE BILIRUBIN NEGATIVE (NEGATIVE); URINE BLOOD TRACE-LYSED (NEGATIVE); URINE GLUCOSE (UA) NEGATIVE (NEGATIVE); URINE KETONE NEGATIVE (NEGATIVE); URINE LEUKOCYTE ESTERASE LARGE Leu/uL (NEGATIVE); URINE PROTEIN 30 mg/dL (<30 mg/dL)
[2016-07-22 14:32] LABS: URINE APPEARANCE TURBID (CLEAR); URINE COLOR YELLOW (YELLOW)
[2016-07-22] MEDS ORDERED: cefTRIAXone 1 gm 1 GM/100 ML BAG IV STA (14:38)
[2016-07-22 14:45] LABS: URINE BACTERIA MANY (NEG); URINE RBC 0 - 2 /hpf (0-2); URINE WBC TNTC /hpf (0-6)
[2016-07-22 15:03] VITALS: BP 139/71; PULSE 58
[2016-07-22 15:12] VITALS: RESP 16; O2SAT 98
--- NOTE | 2016-07-22 20:55 | CARD ---
APPROVED REPORT EKG Measurement Heart [id number] <Conclusion> Atrial fibrillation Nonspecific T wave abnormality, probably digitalis effect Abnormal ECG
== END 2016-07-22 15:11 ==
LOC: ED 12:59
DX: N39.0 Urinary tract infection, site not specified (principal); I50.9 Heart failure, unspecified; I48.91 Unspecified atrial fibrillation; I10 Essential (primary) hypertension; Z87.891 Personal history of nicotine dependence; E05.90 Thyrotoxicosis, unspecified without thyrotoxic crisis or storm
CPT/HCPCS: 70450; 71010; 80053; 80162; 81001; 82550; 82803; 83615; 83690; 83735; 83880; 84100; 84484; 85025; 85610; 85730; 87040; 87086; 93005; 96374; 99285; J0696

== ENCOUNTER 2016-09-26 03:54 | Emergency (ER) | payer MEDICARE ==
[2016-09-26 03:54] VITALS: PULSE 45
[2016-09-26 03:58] VITALS: BMI 24.3
[2016-09-26 04:15] VITALS: TEMP 98.2
--- NOTE | 2016-09-26 04:46 | ED PDOC ---
Arrival/HPI - General Chief Complaint: Medical Clearance Time Seen by Provider: 09/26/16 04:08 Historian: Patient - History of Present Illness Narrative History of Present Illness (Text): 09/26/16 04:36 Mr. Pedroza is an 89 year old male with a past medical history significant for atrial fibrillation, hypertension, CHF, Meniere's and history of urinary tract infection who presents to the emergency department for generalized weakness and shortness of breath for the past 24 hours. The patient is a poor historian and is thus unable to give a clear history of his presenting illness. He states the onset of his weakness and shortness of breath and is unsure of what makes it better or worse. He is a resident of [facility] and [place] [facility] [place] for frequent urination and generalized weakness. He is oriented to person and place but not time which appears to be baseline from recent review of past encounters. Past Medical History - Provider Review Nursing Documentation Reviewed: Yes - Infectious Disease Hx of Infectious Diseases: None - Tetanus Immunization Tetanus Immunization: Unknown - Cardiac Hx Cardiac Disorders: Yes Hx Atrial Fibrillation: Yes Hx Cardiac Arrhythmia: Yes (a fib) Hx Congestive Heart Failure: Yes Hx Hypertension: Yes Hx Peripheral Edema: Yes Other/Comment: CARDIOMEGALY 05-31-15 - Pulmonary Hx Respiratory Disorders: Yes Hx Pneumonia: Yes Other/Comment: smoked cigarettes,pipe QUIT - Neurological Hx Neurological Disorder: Yes (NEAR SYNCOPE,MENIERE'S DSE,VERTIGO) Hx Dizziness: Yes Hx Vertigo: Yes - HEENT Hx HEENT Disorder: Yes Hx Cataracts: Yes (LENS IMPLANT WITH GLASSES) Hx Deafness: Yes (LEFT EAR-) Hx Glaucoma: Yes Other/Comment: VEstibular neuritis - - Renal Hx Renal Disorder: No - Endocrine/Metabolic Hx Endocrine Disorders: Yes Hx Hyperthyroidism: Yes - Hematological/Oncological Hx Blood Disorders: Yes Hx Anemia: Yes - Integumentary Hx Dermatological Disorder: Yes Hx Eczema: Yes - Musculoskeletal/Rheumatological Hx Musculoskeletal Disorders: Yes Hx Falls: Yes Hx Unsteady Gait: Yes (NON AMBULATORY) - Gastrointestinal Hx Gastrointestinal Disorders: Yes Hx Diverticulitis: Yes Hx Gastroesophageal Reflux: Yes Other/Comment: CONSTIPATION, - Genitourinary/Gynecological Hx Genitourinary Disorders: Yes Hx Incontinence: Yes (SOME) Hx Prostate Problems: Yes (BPH) Hx Urinary Tract Infection: Yes - Psychiatric Hx Psychophysiologic Disorder: Yes (INSOMNIA) Hx Anxiety: Yes Hx Depression: No Hx Emotional Abuse: No Hx Physical Abuse: No Hx Substance Use: No Other/Comment: SMOKED CIGARETTES,PIPE QUIT,ETOH USE QUIT - Past Surgical History Past Surgical History: Unable to Obtain - Surgical History Other/Comment: 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,BILATERAL EYE LENS IMPLANT - Suicidal Assessment Feels Threatened In Home Enviroment: No Family/Social History - Physician Review Nursing Documentation Reviewed: Yes Family/Social History: No Known Family HX Smoking Status: Former Smoker Hx Alcohol Use: No Hx Substance Use: No Hx Substance Use Treatment: No Allergies/Home Meds Allergies/Adverse Reactions: Allergies No Known Allergies Allergy (Verified 09/26/16 04:09) Home Medications: Home Meds Medication Instructions Recorded Confirmed Furosemide [Lasix] 20 mg PO BID 10/14/13 09/26/16 Warfarin [Coumadin] 3 mg PO DAILY 10/14/13 09/26/16 LORazepam [Ativan] 0.5 mg PO Q8 10/28/13 09/26/16 Lisinopril [Zestril] 2.5 mg PO DAILY 10/28/13 09/26/16 Tamsulosin HCl [Flomax] 0.4 mg PO DAILY 06/20/14 09/26/16 Ascorbic Acid [Vitamin C] 500 mg PO BID 05/31/15 09/26/16 Multivitamin [One Daily] 1 tab PO DAILY 05/31/15 09/26/16 Atorvastatin [Lipitor] 5 mg PO HS 07/17/15 09/26/16 Carvedilol [Coreg] 3.125 mg PO BID 07/17/15 09/26/16 Digoxin [Lanoxin] 0.125 mg PO MWF 07/17/15 09/26/16 Ferrous Sulfate [Feosol] 325 mg PO DAILY 07/17/15 09/26/16 Polyethylene Glycol 3350 [Miralax] 17 gm PO BID PRN 07/17/15 09/26/16 Aluminum Hydroxide/Magnesium H 30 ml PO Q4 PRN 05/27/16 09/26/16 [Maalox 30 ml] Meclizine [Meclizine*] 12.5 mg PO BID PRN 05/27/16 09/26/16 Verapamil [Calan Tab] 120 mg PO Q12 05/27/16 09/26/16 Acetaminophen [Tylenol 325mg tab] 325 mg PO Q6 PRN 06/14/16 09/26/16 Albuterol/Ipratropium [Duoneb 3 1 ea IH Q6 PRN 09/26/16 09/26/16 MG/3 Ml-0.5 MG/3 Ml 3 Ml] Review of Systems - Review of Systems Constitutional: Fatigue. absent: Weight Change, Fevers, Night Sweats Eyes: absent: Vision Changes Respiratory: SOB. absent: Cough Cardiovascular: Edema. absent: Chest Pain Gastrointestinal: absent: Abdominal Pain, Constipation, Diarrhea, Nausea Genitourinary Male: absent: Dysuria, Frequency, Hematuria, Urinary Output Changes Skin: absent: Rash, Pruritis Neurological: Dizziness. absent: Headache Endocrine: absent: Diaphoresis, Polyuria Psychiatric: absent: Anxiety, Depression Physical Exam Vital Signs Reviewed: Yes Vital Signs Temp Pulse Resp BP Pulse Ox 09/26/16 04:10 98.2 F 67 19 122/74 98 Temperature: Afebrile Blood Pressure: Normal Pulse: Regular Respiratory Rate: Normal Appearance: Positive for: Non-Toxic, Comfortable Mental Status: Positive for: other (Alert and oriented to person and place ) - Systems Exam Head: Present: Atraumatic, Normocephalic Pupils: Present: PERRL Extroacular Muscles: Present: EOMI Conjunctiva: Present: Normal. No: Injected Mouth: Present: Dry Respiratory/Chest: Present: Clear to Auscultation, Good Air Exchange. No: Respiratory Distress Cardiovascular: Present: Irregular Rhythm, Bradycardic. No: Murmurs Abdomen: Present: Normal Bowel Sounds. No: Tenderness, Distention, Peritoneal Signs Upper Extremity: Present: Normal Inspection, NORMAL PULSES. No: Cyanosis, Edema Lower Extremity: Present: Edema (+3), NORMAL PULSES. No: Cyanosis Neurological: Present: GCS=15, CN II-XII Intact. No: Gait Normal Skin: Present: Warm, Dry Psychiatric: Present: Alert Medical Decision Making ED Course and Treatment: 09/26/16 05:00 Impression: Mr. Pedroza is an 89 year old male complaining of generalized weakness for past 24 hours. Differential Diagnosis included but are not limited to: Generalized weakness Plan: - Chest x-ray - Urinalysis - Troponin - CBC, CMP - Reassess and disposition Progress Notes: - Lab Interpretations Lab Results: 09/26/16 04:30 09/26/16 04:30 Lab Results 09/26/16 04:51: Urine Color Yellow, Urine Appearance Clear, Urine pH 7.0, Ur Specific [place] 1.010, Urine Protein Negative, Urine Glucose (UA) Negative, Urine Ketones Negative, Urine Blood Negative, Urine Nitrate Negative, Urine Bilirubin Negative, Urine Urobilinogen 2.0 H, Ur Leukocyte Esterase Trace H, Urine RBC 0 - 2, Urine WBC 0 - 2, Ur Epithelial Cells 0 - 2 09/26/16 04:30: Sodium 131 L, Potassium 4.6, Chloride 94 L, Carbon Dioxide 31, Anion Gap 11, BUN 14, Creatinine 0.7, Est GFR ( Amer) > 60, Est GFR (Non- Af Amer) > 60, Random Glucose 98, Calcium 8.9, Total Bilirubin 0.8, AST 41, ALT 24, Alkaline Phosphatase 41, Troponin I < 0.01, Total Protein 7.2, Albumin 3.8, Globulin 3.4, Albumin/Globulin Ratio 1.1 09/26/16 04:30: WBC 7.1, RBC 3.31 L, Hgb 11.2 L, Hct 32.8 L, MCV 99.1, MCH 33.8 , MCHC 34.1, RDW 13.2, Plt Count 206, MPV 8.5 09/26/16 04:02: POC Glucose (mg/dL) 94 - RAD Interpretation Radiology Orders: 09/26/16 04:33 CHEST ONE VIEW [RAD] Stat - Medication Orders Current Medication Orders: Discontinued Medications Acetaminophen (Tylenol 325mg Tab) 325 mg PO STAT STA Stop: 09/26/16 05:06 Last Admin: 09/26/16 05:12 Dose: 325 mg - PA / [employer] / Resident Statement / has reviewed & agrees with the documentation as recorded. / has examined the patient and agrees with the treatment plan. Disposition/Present on Arrival - Present on Arrival Any Indicators Present on Arrival: No History of DVT/PE: No History of Uncontrolled Diabetes: No Urinary Catheter: No History of Decub. Ulcer: No History Surgical Site Infection Following: None - Disposition Have Diagnosis and Disposition been Completed?: Yes Diagnosis: Generalized weakness, CHF (congestive heart failure), Afib Disposition: HOME/ ROUTINE Disposition Time: 06:30 Patient Plan: Discharge Patient Problems: Current Active Problems Problem Status Onset CHF (congestive heart failure) Acute Afib Acute GERD (gastroesophageal reflux disease) Acute Dizziness Acute Generalized weakness Acute Condition: GOOD Discharge Instructions (ExitCare): Weakness (ED), Heart Failure (ED) Additional Instructions: Thank you for letting us take care of you today. You were treated for generalized weakness. The emergency medical care you received today was directed at your acute symptoms. If you were prescribed any medication, please fill it and take as directed. It may take several days for your symptoms to resolve. Return to the Emergency Department if your symptoms worsen, do not improve, or if you have any other problems. Please contact your doctor or call one of the physicians/clinics you have been referred to that are listed on the Patient Visit Information form that is included in your discharge packet. Bring any paperwork you were given at discharge with you along with any medications you are taking to your follow up visit. Our treatment cannot replace ongoing medical care by a primary care provider (PCP) outside of the emergency department. Thank you for allowing the [facility] team to be part of your care today. Follow up with your doctor in 2-3 days for re-evaluation. Referrals: Prashanth Madera MD [Primary Care Provider] - Follow up with primary
[2016-09-26 05:07] LABS: HEMOGLOBIN 11.2 gm/dL (14.0-18.0); MEAN CELL VOLUME 99.1 fL (80.0-105.0); MEAN CORPUSCULAR HEMOGLOBIN 33.8 pg (25.0-35.0); MEAN CORPUSCULAR HGB CONC 34.1 g/dl (31.0-37.0); MEAN PLATELET VOLUME 8.5 fl (7.0-11.0); RBC 3.31 10^6/uL (3.5-6.1); RED CELL DISTRIBUTION WIDTH 13.2 % (11.5-14.5); WHITE BLOOD COUNT 7.1 10^3/ul (4.5-11.0)
[2016-09-26 05:13] LABS: URINE BILIRUBIN NEGATIVE (NEGATIVE); URINE BLOOD NEGATIVE (NEGATIVE); URINE GLUCOSE (UA) NEGATIVE (NEGATIVE); URINE LEUKOCYTE ESTERASE TRACE Leu/uL (NEGATIVE); URINE NITRATE NEGATIVE (NEGATIVE); URINE PROTEIN NEGATIVE mg/dL (<30 mg/dL)
[2016-09-26 05:17] LABS: URINE APPEARANCE CLEAR (CLEAR); URINE COLOR YELLOW (YELLOW)
[2016-09-26 05:34] LABS: URINE EPITHELIAL CELLS 0 - 2 /hpf (0-5); URINE RBC 0 - 2 /hpf (0-2); URINE WBC 0 - 2 /hpf (0-6)
[2016-09-26 06:03] LABS: ALB/GLOB RATIO 1.1 (1.1-1.8); ALBUMIN 3.8 g/dL (3.0-4.8); ALT/SGPT 24 U/L (7-56); AST/SGOT 41 U/L (15-59); BLOOD UREA NITROGEN 14 mg/dL (7-21); CALCIUM 8.9 mg/dL (8.4-10.5); GFR AFRICAN-AMERICAN > 60; GFR NON-AFRICAN AMERICAN > 60
[2016-09-26 06:20] LABS: TROPONIN I < 0.01 ng/mL
[2016-09-26 06:40] VITALS: BP 137/70; PULSE 71; RESP 18; O2SAT 95
--- NOTE | 2016-09-26 09:23 | RAD ---
PROCEDURE: CHEST RADIOGRAPH, 1 VIEW HISTORY: shortness of breath COMPARISON: 07/22/2016 FINDINGS: LUNGS: Clear. PLEURA: No pneumothorax or pleural fluid seen. CARDIOVASCULAR: There is moderate cardiomegaly. Aortic tortuosity OSSEOUS STRUCTURES: Old right clavicular fracture VISUALIZED UPPER ABDOMEN: Normal. OTHER FINDINGS: None. IMPRESSION: Moderate cardiomegaly. No active disease
--- NOTE | 2016-09-26 13:30 | CARD ---
APPROVED REPORT EKG Measurement Heart [id number] <Conclusion> Atrial fibrillation Pause - 1.75 seconds NSSTW changes
== END 2016-09-26 07:14 | disposition home or self-care (01) ==
LOC: ED 03:54
DX: I11.0 Hypertensive heart disease with heart failure (principal); I50.9 Heart failure, unspecified; I48.91 Unspecified atrial fibrillation; H81.09 Meniere's disease, unspecified ear; D64.9 Anemia, unspecified; Z87.891 Personal history of nicotine dependence